=== PATIENT | male | born 1995 | race Caucasian/White ===

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

== ENCOUNTER 2017-02-28 11:36 | Emergency (ER) | payer SELFPAY ==
[~2017-02-28] VITALS: Ht 193 cm; Wt 149.4 kg
[2017-02-28 11:51] VITALS: BP 163/86
[2017-02-28] MEDS ORDERED: DEBR6.5S4 AU (13:27)
== END 2017-02-28 14:03 | disposition home or self-care (01) ==
LOC: M ED 11:36
DX: H61.22 Impacted cerumen, left ear (principal)

== ENCOUNTER 2017-11-13 12:52 | Emergency (ER) | payer SELFPAY | END 2017-11-13 14:41 | disposition home or self-care (01) | LOC: M ED 12:52 | DX: L02.424 Furuncle of left upper limb (principal); L02.426 Furuncle of left lower limb | CPT/HCPCS: 99283 ==

== ENCOUNTER 2018-02-13 03:06 | Emergency (ER) | payer SELFPAY ==
[2018-02-13] MEDS: ACETAMINOPHEN 325 MG TAB PO (04:00)
[2018-02-13] MEDS: NORCO, ANEXSIA 5/325MG TABLET (HYDROcodone/ACETAMINOPHEN) PO (07:09)
[2018-02-13] MEDS: BACTRIM 160MG/800MG DS TAB PO (07:10)
== END 2018-02-13 07:18 | disposition home or self-care (01) ==
LOC: M ED 03:06
DX: L02.416 Cutaneous abscess of left lower limb (principal)
CPT/HCPCS: 87186

== ENCOUNTER 2018-11-11 02:18 | Emergency (ER) | payer SELFPAY ==
[~2018-11-11] VITALS: Ht 193 cm; Wt 150.0 kg
[~2018-11-11 02:18] MED LIST: BACT800T5 PO; DEBR6.5S4 AU; DOXY100C37 PO; NORCOTAB PO
[2018-11-11] MEDS ORDERED: MUPIROCIN 2% OINT 22 GM TUBE TOP ONE (05:00)
[2018-11-11 05:15] VITALS: BP 140/79
== END 2018-11-11 05:15 | disposition home or self-care (01) ==
LOC: M ED 02:18
DX: L73.9 Follicular disorder, unspecified (principal)

== ENCOUNTER 2019-04-09 02:35 | Emergency (ER) | payer SELFPAY ==
[~2019-04-09] VITALS: Ht 193 cm; Wt 150.0 kg
[~2019-04-09 02:35] MED LIST changes: +HYDR-3715 PO; -NORCOTAB PO
[2019-04-09] MEDS: CEPHALEXIN 500 MG CAP PO ONE (05:08)
[2019-04-09 05:38] VITALS: BP 130/75
[2019-04-09] MEDS ORDERED: MUPI2OI TOP (05:42)
[2019-04-09] MEDS: MUPIROCIN 2% OINT 22 GM TUBE TOP ONE (05:42)
[2019-04-09] MEDS ORDERED: KEFL500C17 PO (05:42)
== END 2019-04-09 05:54 | disposition home or self-care (01) ==
LOC: M ED 02:35
DX: L73.9 Follicular disorder, unspecified (principal); T24.001A Burn of unspecified degree of unspecified site of right lower limb, except ankle and foot, initial encounter; X58.XXXA Exposure to other specified factors, initial encounter; Y92.89 Other specified places as the place of occurrence of the external cause

== ENCOUNTER 2019-11-09 02:17 | Emergency (ER) | payer SELFPAY ==
[~2019-11-09] VITALS: Ht 193 cm; Wt 145.4 kg
[~2019-11-09 02:17] MED LIST changes: +KEFL500C17 PO; +MUPI2OI TOP
[2019-11-09] MEDS ORDERED: LIDOCAINE W/EPINEPHRINE 1% 20ML VIAL INFIL ONE (06:15)
[2019-11-09] MEDS ORDERED: BACT800T5 PO (06:35)
[2019-11-09 06:40] VITALS: BP 135/76
== END 2019-11-09 06:41 | disposition home or self-care (01) ==
LOC: M ED 02:17
DX: L05.91 Pilonidal cyst without abscess (principal); Z86.14 Personal history of Methicillin resistant Staphylococcus aureus infection

== ENCOUNTER 2019-11-11 08:10 | Emergency (ER) | payer SELFPAY ==
[~2019-11-11] VITALS: Ht 193 cm; Wt 150.6 kg
[2019-11-11 08:10] VITALS: BP 138/75
== END 2019-11-11 09:02 | disposition home or self-care (01) ==
LOC: M ED 08:10
DX: Z48.01 Encounter for change or removal of surgical wound dressing (principal)

== ENCOUNTER 2020-01-24 17:14 | Emergency (ER) | payer SELFPAY ==
[~2020-01-24] VITALS: Ht 193 cm; Wt 157.0 kg
[2020-01-24] MEDS ORDERED: BOOSTRIX/ADACEL VACCINE (DIPHTH/PERTUSS/ACELL/TETANUS) 0.5ML SYR IM ONE (17:45)
[2020-01-24] MEDS ORDERED: NS 1,000 ML IV ONE (17:45)
[2020-01-24] MEDS ORDERED: ISOVUE-370 76% 100ML VIAL As Ordered ONE (17:51)
[2020-01-24 17:55] LABS: BASO # 0.1 10^3/uL (0.0-0.2); BASO % 0.5 % (0.0-1.0); EOS % 0.3 % (0.0-3.0); HEMATOCRIT 44.1 % (42.0-52.0); HEMOGLOBIN 15.9 g/dl (13.5-17.5); LYMPH # 1.6 10^3/uL (1.5-5.0); LYMPH % 13.2 % (24.0-44.0); MEAN CORPUSCULAR HEMOGLOBIN 31.3 pg (27.0-33.0); MEAN CORPUSCULAR HGB CONC 36.1 g/dl (32.0-36.5); MEAN CORPUSCULAR VOLUME 86.8 fl (80.0-96.0); MONO # 0.7 10^3/uL (0.0-0.8); MONO % 5.8 % (0.0-5.0); NEUTROPHILS # 9.4 10^3/uL (1.5-8.5); NEUTROPHILS % 79.8 % (36.0-66.0); PLATELET COUNT, AUTOMATED 265 10^3/uL (150-450); RED BLOOD COUNT 5.08 10^6/uL (4.30-6.10); WHITE BLOOD COUNT 11.8 10^3/uL (4.0-10.0)
[2020-01-24 18:05] LABS: INR 1.04; PROTHROMBIN TIME 13.3 SECONDS (11.8-14.0)
[2020-01-24 18:06] LABS: PARTIAL THROMBOPLASTIN TIME 25.1 SECONDS (25.0-38.4)
[2020-01-24 18:21] LABS: ALBUMIN 4.4 GM/DL (3.2-5.2); BILIRUBIN,DIRECT 0.3 MG/DL (0.0-0.2); BILIRUBIN,TOTAL 1.4 MG/DL (0.2-1.0); TOTAL PROTEIN 8.2 GM/DL (6.4-8.2)
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
[2020-01-24 19:45] VITALS: BP 154/72
--- NOTE | 2020-01-25 03:13 | REP ---
Clinical: Trauma . Technique: Internal rotation, external rotation, and Y view right shoulder . Findings: No acute fracture or dislocation. The acromioclavicular and glenohumeral joints are intact. No periarticular calcifications or degenerative changes are appreciated. Sub acromial space is normal. Surrounding soft tissues are unremarkable. Impression: Normal right shoulder radiographs. Electronically Signed by Ramiro Paniagua MD 01/25/2020 03:04 A
--- NOTE | 2020-01-25 04:26 | REP ---
Clinical: Trauma . Comparison: None . Findings: The mediastinum and cardiac silhouette are stable and within normal limits for portable technique. The lung elliott are clear without acute consolidation, effusion, or pneumothorax. Skeletal structures are intact. Impression: No acute cardiopulmonary process appreciated. Electronically Signed by Ramiro Paniagua MD 01/25/2020 04:18 A
== END 2020-01-24 20:10 | disposition home or self-care (01) ==
LOC: M ED 17:14
DX: S40.011A Contusion of right shoulder, initial encounter (principal); T14.8XXA Other injury of unspecified body region, initial encounter; V28.4XXA Motorcycle driver injured in noncollision transport accident in traffic accident, initial encounter; Y92.410 Unspecified street and highway as the place of occurrence of the external cause
CPT/HCPCS: 70450; 71045; 71260; 72125; 73030; 74177; 80047; 80076; 81001; 85025; 85610; 85730; 86850; 86900; 86901; 90471; 90715; 93041; 94760; 96360; 96361; 99285; Q9967

== ENCOUNTER 2020-05-02 04:03 | Emergency (ER) | payer SELFPAY ==
[~2020-05-02] VITALS: Ht 193 cm; Wt 160.4 kg
[2020-05-02] MEDS ORDERED: BENZ5GEL13 TOP (06:19)
[2020-05-02 06:30] VITALS: BP 128/73
== END 2020-05-02 06:51 | disposition home or self-care (01) ==
LOC: M ED 04:03
DX: L73.9 Follicular disorder, unspecified (principal)

== ENCOUNTER 2020-05-11 04:06 | Emergency (ER) | payer SELFPAY ==
[~2020-05-11] VITALS: Ht 193 cm; Wt 161.6 kg
[~2020-05-11 04:06] MED LIST changes: +BENZ5GEL13 TOP
[2020-05-11] MEDS ORDERED: KEFL500C17 PO (06:22)
[2020-05-11 06:27] VITALS: BP 143/76
[2020-05-11] MEDS ORDERED: CEPHALEXIN 500 MG CAP PO ONE (06:30)
== END 2020-05-11 06:50 | disposition home or self-care (01) ==
LOC: M ED 04:06
DX: L02.31 Cutaneous abscess of buttock (principal)

== ENCOUNTER 2022-04-20 04:54 | Emergency (ER) | payer OTHER, SELFPAY ==
[~2022-04-20] VITALS: Ht 193 cm; Wt 155.9 kg
[~2022-04-20 04:54] MED LIST changes: +DOXY-443 PO; -DOXY100C37 PO
[2022-04-20 07:51] LABS: BASO # 0.1 10^3/uL (0.0-0.2); BASO % 0.6 % (0.0-1.0); EOS # 0.1 10^3/uL (0.0-0.5); HEMATOCRIT 42.3 % (42.0-52.0); LYMPH % 24.8 % (24.0-44.0); MEAN CORPUSCULAR HGB CONC 35.5 g/dl (32.0-36.5); MEAN CORPUSCULAR VOLUME 90.2 fl (80.0-96.0); MONO # 0.5 10^3/uL (0.0-0.8); MONO % 6.9 % (2.0-8.0); NEUTROPHILS # 5.2 10^3/uL (1.5-8.5); NEUTROPHILS % 66.4 % (36.0-66.0); RED BLOOD COUNT 4.69 10^6/uL (4.30-6.10); WHITE BLOOD COUNT 7.9 10^3/uL (4.0-10.0)
[2022-04-20 08:34] LABS: BLOOD UREA NITROGEN 17 MG/DL (7-18); CALCIUM LEVEL 8.9 MG/DL (8.5-10.1); CARBON DIOXIDE LEVEL 28 MEQ/L (21-32); CHLORIDE LEVEL 103 MEQ/L (98-107); GLOMERULAR FILTRATION RATE > 60.0 (>60); GLUCOSE, FASTING 88 MG/DL (70-100); POTASSIUM SERUM 4.2 MEQ/L (3.5-5.1); SODIUM LEVEL 136 MEQ/L (136-145); URIC ACID 10.6 MG/DL (3.5-7.2)
[2022-04-20] MEDS ORDERED: INDO50CA91 PO (08:58)
[2022-04-20 09:10] VITALS: BP 140/99
== END 2022-04-20 09:18 | disposition home or self-care (01) ==
LOC: M ED 04:54
DX: M10.9 Gout, unspecified (principal)

== ENCOUNTER 2023-06-22 23:38 | Emergency (ER) | payer BC, OTHER ==
[~2023-06-22] VITALS: Ht 193 cm; Wt 159.1 kg
[~2023-06-22 23:38] MED LIST changes: +INDO50CA91 PO
[2023-06-22 23:39] VITALS: TEMP 98.2
[2023-06-23] MEDS ORDERED: KETOROLAC 60MG 2ML VIAL IM ONE (00:05)
[2023-06-23] MEDS ORDERED: AUGMENTIN 875 MG TAB PO ONE (00:05)
[2023-06-23] MEDS ORDERED: NORCO 5/325MG TABLET (HOME DOSE PACK) PO ONE (00:05)
[2023-06-23] MEDS ORDERED: AMOX875T2 PO (00:14)
[2023-06-23] MEDS ORDERED: HYDR-3713 PO (00:14)
[2023-06-23 00:36] VITALS: BP 153/81; O2SAT 99
== END 2023-06-23 00:37 | disposition home or self-care (01) ==
LOC: M ED 23:38
DX: K08.89 Other specified disorders of teeth and supporting structures (principal); Z79.2 Long term (current) use of antibiotics; Z79.1 Long term (current) use of non-steroidal anti-inflammatories (NSAID)
CPT/HCPCS: 96372; 99283; J1885

== ENCOUNTER → 2023-08-02 | Outpatient (REF) | payer BC ==
[~2023-08-02] MED LIST changes: +AMOX875T2 PO; +HYDR-3713 PO
== END ==
LOC: M LAB REF 18:02
PROVIDERS: ATTEND Physician Assistant
DX: L02.416 Cutaneous abscess of left lower limb (principal)

== ENCOUNTER 2024-12-28 05:16 | Emergency (ER) | payer BC, MEDICAID, SELFPAY ==
[~2024-12-28] VITALS: Ht 193 cm; Wt 169.0 kg
[~2024-12-28 05:16] MED LIST changes: +DOXY-441 PO; -DOXY-443 PO
[2024-12-28] MEDS ORDERED: CIPRHCOTIC OTIC (09:06)
[2024-12-28] MEDS ORDERED: AMOX875T PO (09:06)
[2024-12-28 09:18] VITALS: BP 138/82; TEMP 96.7; O2SAT 100
[2024-12-28] MEDS ORDERED: CIPR7.5D2 OTIC (10:36)
== END 2024-12-28 09:21 | disposition home or self-care (01) ==
LOC: M ED 05:16
DX: H66.91 Otitis media, unspecified, right ear (principal); H60.91 Unspecified otitis externa, right ear; Z79.1 Long term (current) use of non-steroidal anti-inflammatories (NSAID); Z79.2 Long term (current) use of antibiotics

== ENCOUNTER 2025-03-15 05:22 | Emergency (ER) | payer BC, SELFPAY ==
[~2025-03-15 05:22] MED LIST changes: +AMOX875T PO; +CIPR7.5D2 OTIC; +CIPRHCOTIC OTIC
[2025-03-15] MEDS: KETOROLAC 30 MG/ML 1 ML VIAL IV ONE (06:45)
[2025-03-15 06:52] LABS: BASO # 0.1 10^3/uL (0.0-0.2); BASO % 0.8 % (0.0-1.0); EOS # 0.1 10^3/uL (0.0-0.5); EOS % 1.7 % (0.0-3.0); LYMPH # 2.3 10^3/uL (1.5-5.0); LYMPH % 30.1 % (24.0-44.0); MONO # 0.7 10^3/uL (0.0-0.8); MONO % 8.7 % (2.0-8.0); NEUTROPHILS # 4.5 10^3/uL (1.5-8.5); NEUTROPHILS % 58.6 % (36.0-66.0); PLATELET COUNT, AUTOMATED 233 10^3/uL (150-450)
[2025-03-15 07:10] LABS: ERYTHROCYTE SEDIMENTATION RATE 8 mm/hr (0-15)
[2025-03-15 07:22] LABS: C REACTIVE PROTEIN QUANTITATIV < 0.50 MG/DL (<1.0); CALCIUM LEVEL 9.2 MG/DL (8.5-10.1); CARBON DIOXIDE LEVEL 31 MMOL/L (20-31); CHLORIDE LEVEL 103 MMOL/L (98-107); CREATININE FOR GFR 1.24 MG/DL (0.70-1.30); GLOMERULAR FILTRATION RATE 81.7 (>60); POTASSIUM SERUM 3.9 MMOL/L (3.5-5.1); SODIUM LEVEL 144 MMOL/L (136-145)
[2025-03-15 07:50] VITALS: BP 124/75; TEMP 98.4; O2SAT 99
== END 2025-03-15 07:55 | disposition home or self-care (01) ==
LOC: M ED 05:22
DX: M65.271 Calcific tendinitis, right ankle and foot (principal); F10.10 Alcohol abuse, uncomplicated
CPT/HCPCS: 73610; 73630; 80048; 84550; 85025; 85652; 86140; 96374; 99284; J1885

== ENCOUNTER 2025-05-17 09:19 | Emergency (ER) | payer BC, SELFPAY ==
[~2025-05-17] VITALS: Ht 193 cm; Wt 165.2 kg
[2025-05-17 09:22] VITALS: BP 143/83; TEMP 98.3; O2SAT 100
[2025-05-17] MEDS ORDERED: CIPR0.3S37 OS (10:23)
== END 2025-05-17 10:31 | disposition home or self-care (01) ==
LOC: M ED 09:19
DX: H57.89 Other specified disorders of eye and adnexa (principal); Z79.2 Long term (current) use of antibiotics

== ENCOUNTER 2025-08-08 15:53 | Emergency (ER) | payer BC ==
[~2025-08-08] VITALS: Ht 193 cm; Wt 159.1 kg
[~2025-08-08 15:53] MED LIST changes: +CIPR0.3S37 OS
[2025-08-08 19:30] VITALS: BP 144/86; TEMP 97.1; O2SAT 99
== END 2025-08-08 19:32 | disposition home or self-care (01) ==
LOC: M ED 15:53
DX: R05.9 Cough, unspecified (principal); B97.4 Respiratory syncytial virus as the cause of diseases classified elsewhere

== ENCOUNTER → 2025-08-16 | Outpatient (REF) | payer BC, OTHER ==
[2025-08-16 17:34] LABS: ALT/SGPT 70.0 U/L (7.0-40); AST/SGOT 54.0 U/L (<34); CALCIUM LEVEL 9.7 MG/DL (8.5-10.1); CARBON DIOXIDE LEVEL 31.0 MMOL/L (20-31); CHLORIDE LEVEL 101.0 MMOL/L (98-107); CHOLESTEROL LEVEL 186.0 MG/DL (<200); CHOLESTEROL RISK RATIO 5.18 (<5); CREATININE FOR GFR 1.18 MG/DL (0.70-1.30); GLOMERULAR FILTRATION RATE 86.7 (>60); LDL CHOLESTEROL 94.9 MG/DL (<100); NON-HDL-C 150.1 MG/DL; POTASSIUM SERUM 4.4 MMOL/L (3.5-5.1); SODIUM LEVEL 138.0 MMOL/L (136-145); TRIGLYCERIDES LEVEL 276.0 MG/DL (<150)
[2025-08-16 17:35] LABS: FREE T4 1.17 NG/DL (0.89-1.76)
== END ==
LOC: M LAB REF 16:28
PROVIDERS: ATTEND Student in an Organized Health Care Education/Training Program
DX: R03.0 Elevated blood-pressure reading, without diagnosis of hypertension (principal); Z83.42 Family history of familial hypercholesterolemia